=== PATIENT | female | born 1990 | race Caucasian/White ===

== ENCOUNTER 2016-09-11 15:46 | Outpatient (CLI) ==
[2016-05-31 12:12] VITALS: BMI 21.4
[2016-09-12 06:12] LABS: TESTOSTERONE 35 ng/dL (8-48)
[2016-09-12 07:16] LABS: FOLLICLE STIMULATING HORMONE 2.6 mIU/mL (.); LUTEINIZING HORMONE 5.2 mIU/mL (.); PROLACTIN 23.4 ng/mL (4.8-23.3)
[2016-09-14 09:54] LABS: FREE TESTOSTERONE 0.8 pg/mL (0.0-4.2)
== END 2016-09-11 15:47 | disposition home or self-care (01) ==
LOC: LAB 15:46
PROVIDERS: ATTEND Advanced Practice Midwife
DX: R10.2 Pelvic and perineal pain (principal)
CPT/HCPCS: 36415; 83001; 83002; 83036; 84146; 84402; 84403; 84439; 84443

== ENCOUNTER 2017-02-12 14:47 | Outpatient (CLI) ==
[2016-05-31 12:12] VITALS: BMI 21.4
--- NOTE | 2017-02-12 15:44 | DI ---
EXAM: Two views of the chest. History: Cough. Comparison: Chest radiograph 01/30/2016 Findings: Heart size is normal. No focal consolidation. No appreciable pleural fluid and no pneumo thorax. No acute osseous abnormalities. Impression: No acute cardiopulmonary process.
== END 2017-02-12 14:48 | disposition home or self-care (01) ==
LOC: RAD 14:47
PROVIDERS: ATTEND Nurse Practitioner Family
DX: J02.9 Acute pharyngitis, unspecified (principal); J40 Bronchitis, not specified as acute or chronic; R05 Cough; F17.200 Nicotine dependence, unspecified, uncomplicated
CPT/HCPCS: 87651; 87880

== ENCOUNTER 2017-04-01 16:31 | Outpatient (CLI) ==
[2016-05-31 12:12] VITALS: BMI 21.4
[2017-04-01 16:38] LABS: BASOPHILS # (AUTO) 0.1 K/uL (0-0.2); BASOPHILS % (AUTO) 1.1 % (0.0-3.0); EOSINOPHILS # (AUTO) 0.7 K/ul (0.0-0.7); EOSINOPHILS % (AUTO) 6.4 % (0.0-7.0); HEMATOCRIT 38.7 % (37.0-47.0); HEMOGLOBIN 13.2 g/dl (12.0-16.0); IMMATURE GRANULOCYTE % (AUTO) 0.5 % (0.0-5.0); LYMPHOCYTES # (AUTO) 3.5 K/uL (0.60-3.4); LYMPHOCYTES % (AUTO) 32.1 (10.0-50.0); MEAN CORPUSCULAR HEMOGLOBIN 31.6 pg (27.0-31.0); MEAN CORPUSCULAR HGB CONC 34.1 (31.8-35.4); MEAN CORPUSCULAR VOLUME 92.6 fl (81.0-99.0); MONOCYTES # (AUTO) 0.6 K/uL (0.4-2.0); NEUTROPHILS # (AUTO) 5.8 K/ul (2.0-6.9); NEUTROPHILS % (AUTO) 53.9; PLATELET COUNT 326 10^3/uL (140-440); RED BLOOD COUNT 4.18 10^6/ul (4.20-5.40); WHITE BLOOD COUNT 10.75 K/ul (4.6-10.2)
[2017-04-01 16:40] LABS: BILIRUBIN,URINE Negative (NEGATIVE); KETONES,URINE Negative (NEGATIVE); LEUKOCYTE ESTERASE ,URINE Negative (NEGATIVE); NITRITE,URINE Positive (NEGATIVE); PROTEIN,URINE Negative (NEGATIVE); URINE, BLOOD Negative (NEGATIVE)
[2017-04-01 16:43] LABS: ADD URINE MICROSCOPIC YES
[2017-04-01 16:51] LABS: ALBUMIN 3.5 g/dL (3.4-5.0); ALBUMIN/GLOBULIN RATIO 0.95; ANION GAP 10.7; BILIRUBIN,TOTAL 0.38 mg/dL (0.00-1.20); BUN/CREATININE RATIO 8.45; CALCIUM 9.5 mg/dL (8.2-10.2); CREATININE 0.71 mg/dL (0.60-1.30); POTASSIUM 3.7 mmol/L (3.5-5.10); TOTAL PROTEIN 7.2 g/dL (6.4-8.2)
[2017-04-01 16:54] LABS: BACTERIA,URINE TRACE (NOT PRESENT)
== END 2017-04-01 16:32 | disposition home or self-care (01) ==
LOC: LAB 16:31
PROVIDERS: ATTEND Nurse Practitioner Family
DX: N30.00 Acute cystitis without hematuria (principal); R81 Glycosuria; R30.0 Dysuria
CPT/HCPCS: 36415; 80053; 81001; 85025; 87086

== ENCOUNTER 2017-04-17 16:56 | Outpatient (CLI) ==
[2016-05-31 12:12] VITALS: BMI 21.4
--- NOTE | 2017-04-17 17:35 | DI ---
EXAM: Five view lumbar spine COMPARISON: None HISTORY: Back pain. FINDINGS: Oblique views show no evidence for pars defect. There is no acute compression or subluxatio n. Alignment is anatomic. The disk spaces are well preserved. There is no significant degenerative ch delia. The visualized sacroiliac joints are symmetric with no evidence for erosion. Soft tissues are unrema rkable. There are no pathologic calcifications or masses. There are 5 lumbar type vertebral bodies. IMPRESSION: Negative lumbar spine.
== END 2017-04-17 16:57 | disposition home or self-care (01) ==
LOC: RAD 16:56
PROVIDERS: ATTEND Nurse Practitioner Family
DX: M54.5 Low back pain (principal)

== ENCOUNTER 2017-05-24 12:38 | Outpatient (CLI) ==
[2016-05-31 12:12] VITALS: BMI 21.4
[2017-05-24 12:46] LABS: FLU INTERNAL QC INTERNAL QC VALID; MOLECULAR FLU A NEGATIVE (NEGATIVE); MOLECULAR FLU B NEGATIVE (NEGATIVE)
[2017-05-24 12:51] LABS: BILIRUBIN,URINE Negative (NEGATIVE); KETONES,URINE Negative (NEGATIVE); LEUKOCYTE ESTERASE ,URINE Trace (NEGATIVE); NITRITE,URINE Positive (NEGATIVE); PROTEIN,URINE 1+ (NEGATIVE); URINE, BLOOD Trace-intact (NEGATIVE)
[2017-05-24 12:53] LABS: ADD URINE MICROSCOPIC YES
[2017-05-24 13:06] LABS: BACTERIA,URINE 2+ (NOT PRESENT)
== END 2017-05-24 12:39 | disposition home or self-care (01) ==
LOC: LAB 12:38
PROVIDERS: ATTEND Nurse Practitioner Family
DX: N30.01 Acute cystitis with hematuria (principal); J02.9 Acute pharyngitis, unspecified; R68.89 Other general symptoms and signs
CPT/HCPCS: 81001; 87086; 87186; 87651; 87804; 87880

== ENCOUNTER 2017-06-22 17:29 | Emergency (ER) ==
[2017-06-22 17:37] VITALS: BP 135/75; TEMP 99.2; BMI 24.3
--- NOTE | 2017-06-22 18:16 | ED.PDOC ---
General ED Provider: Dr. KASEY BRANDON Chief Complaint: Abdominal Pain Stated Complaint: one week history of Lower abdominal pressure with Nausea, headache and frequency urination. Time Seen by Physician: 18:13 Mode of Arrival: Walk-In Information Source: Patient Exam Limitations: No limitations Primary Care Provider: PHILL REYES Nursing and Triage Documentation Reviewed and Agree: Yes Reviewed sepsis parameters & appropriate labs ordered?: No System Inflammatory Response Syndrome: Not Applicable Sepsis Protocol: For patient's 13 years and over: Temp is 96.8 and below OR 101 and greater Pulse >90 BPM Resp >20/minute Acutely Altered Mental Status Are patient's symptoms suggestive of a new infection, such as: -Pneumonia -Skin, Soft Tissue -Endocarditis -UTI -Bone, Joint Infection -Implantable Device -Acute Abdominal Infection -Wound Infection -Meningitis -Blood Stream Catheter Infection -Unknown System Inflammatory Response Syndrome: Not Applicable GI Complaint Exam - Abdominal Pain Complaint/Exam Onset: Gradual Duration: 1 week Symptoms Are: Still present Timing: Constant Initial Severity: Moderate Current Severity: Mild Location of Pain: RLQ, LUQ Character: Reports: Aching, Throbbing Aggravating: Reports: None Alleviating: Reports: None Associated Signs and Symptoms: Reports: Nausea. Denies: Diaphoresis, Fever, Cough, Chest pain, Dizziness, Back pain, Constipation, Blood in stool, Dysuria, Urinary frequency, Decreased urine output, Decreased appetite, Vaginal bleeding , Vaginal discharge, Vomiting, Diarrhea, Sore throat, Decreased activity AAA Risk Factors: Reports: None Cardiac Risk Factors: Reports: None Ectopic Risk Factors: Reports: None Ovarian Torsion Risk Factors: Reports: None Surgical Obstruction Risk Factors: Reports: None Related Surgical History: Reports: None Differential Diagnoses: Appendicitis, Bowel Obstruction, Constipation, Pancreatitis, Renal Colic, UTI, , Ectopic , Ovarian Cyst Review of Systems - Review Of Systems Constitutional: Reports: No symptoms Eyes: Reports: No symptoms Ears, Nose, Mouth, Throat: Reports: No symptoms Respiratory: Reports: No symptoms Cardiac: Reports: No symptoms GI: Reports: Abdominal pain, Nausea : Reports: Dysuria, Frequency Musculoskeletal: Reports: No symptoms Skin: Reports: No symptoms Neurological: Reports: Headache Endocrine: Reports: No symptoms Hematologic/Lymphatic: Reports: No symptoms All Other Systems: Reviewed and Negative Past Medical History - Past Medical History Previously Healthy: Yes Endocrine: Reports: None Cardiovascular: Reports: Hypertension, Other (right bundle branch block ) Respiratory: Reports: Asthma, Pneumonia (one month ago ) Hematological: Reports: None Gastrointestinal: Reports: None Genitourinary: Reports: None Neuro/Psych: Reports: Migraine, Anxiety Musculoskeletal: Reports: Other Cancer: Reports: None Last Menstrual Period: may 15 - Surgical History General Surgical History: Reports: Tonsillectomy, Adenoidectomy, Orthopedic ( RIGHT ULNAR AND RADIUS SET FROM AN INJURY 1999) - Family History Family History: Reports: Other (Female cancers.) - Social History Smoking Status: Current every day smoker, Light tobacco smoker Hx Substance Use: No Alcohol Screening: Occasionally Physical Exam - Physical Exam Appearance: Well-appearing, Well-nourished Pain Distress: Mild Eyes: GUY, EOMI, Conjunctiva clear ENT: Ears normal, Nose normal, Oropharynx normal Respiratory: Airway patent, Breath sounds clear, Breath sounds equal, Respirations nonlabored Cardiovascular: RRR, Pulses normal, No rub, No murmur GI/: Soft, No masses, Bowel sounds normal, No Organomegaly, Tender (mild tenderness to palpation, no rebound. ) Musculoskeletal: Normal strength, ROM intact, No edema, No calf tenderness Skin: Warm, Dry, Normal color Neurological: Sensation intact, Motor intact, Reflexes intact, Cranial nerves intact, Alert, Oriented Psychiatric: Affect appropriate, Mood appropriate Interpretation - Radiology Interpretation Radiology Interpretation By: Radiologist Radiology Results: Positive (Right Adnexal Cyst without free fluid.) Exam Interpreted: CT Scan (Abdomen and Pelvis. ) Critical Care Note - Critical Care Note Total Time (mins): 0 Course - Course Hematology/Chemistry: 06/22/17 17:50 06/22/17 17:50 Orders, Labs, Meds: Lab Review 06/22/17 06/22/17 06/22/17 17:41 17:41 17:50 WBC 12.53 H RBC 4.20 Hgb 13.3 Hct 38.9 MCV 92.6 MCH 31.7 H MCHC 34.2 RDW Coeff of Marly 12.6 Plt Count 290 Immature Gran % (Auto) 0.3 Neut % (Auto) 42.8 Lymph % (Auto) 36.9 Early % (Auto) 6.8 Eos % (Auto) 12.1 H Baso % (Auto) 1.1 Immature Gran # (Auto) 0.0 Neut # 5.4 Lymph # 4.6 H Early # 0.9 Eos # 1.5 H Baso # 0.1 Sodium Potassium Chloride Carbon Dioxide Anion Gap BUN Creatinine Estimated GFR (MDRD) BUN/Creatinine Ratio Glucose Calcium Total Bilirubin AST ALT Alkaline Phosphatase Total Protein Albumin Globulin Albumin/Globulin Ratio Amylase Lipase Urine Color Yellow Urine Clarity Clear Urine pH 5.5 Ur Specific [place] <=1.005 Urine Protein Negative Urine Glucose (UA) Negative Urine Ketones Negative Urine Blood Negative Urine Nitrite Negative Urine Bilirubin Negative Urine Urobilinogen 0.2 Ur Leukocyte Esterase Negative Urine Test Negative 06/22/17 17:50 WBC RBC Hgb Hct MCV MCH MCHC RDW Coeff of Marly Plt Count Immature Gran % (Auto) Neut % (Auto) Lymph % (Auto) Early % (Auto) Eos % (Auto) Baso % (Auto) Immature Gran # (Auto) Neut # Lymph # Early # Eos # Baso # Sodium 138 Potassium 3.4 L Chloride 108 H Carbon Dioxide 25 Anion Gap 8.4 BUN 9 Creatinine 0.71 Estimated GFR (MDRD) 101.00 BUN/Creatinine Ratio 12.67 Glucose 63 L Calcium 9.3 Total Bilirubin < 0.3 AST 19 ALT 28 Alkaline Phosphatase 61 Total Protein 7.2 Albumin 3.7 Globulin 3.5 Albumin/Globulin Ratio 1.06 Amylase 82 Lipase 50 Urine Color Urine Clarity Urine pH Ur Specific [place] Urine Protein Urine Glucose (UA) Urine Ketones Urine Blood Urine Nitrite Urine Bilirubin Urine Urobilinogen Ur Leukocyte Esterase Urine Test Orders Category Date Time Status AMYLASE Stat LAB 06/22/17 17:50 Completed CBC W/ AUTO DIFF Stat LAB 06/22/17 17:50 Completed COMPREHENSIVE METABOLIC PANEL Stat LAB 06/22/17 17:50 Completed LIPASE Stat LAB 06/22/17 17:50 Completed URINALYSIS C & S IF INDICATED Stat LAB 06/22/17 17:41 Completed URINE Stat LAB 06/22/17 17:41 Completed Ketorolac Tromethamine [Toradol] MEDS 06/22/17 19:11 Discontinued 60 mg IM ONCE STA CT ABD/PEL WO RENAL STONE PROT Stat RADS 06/22/17 18:01 Completed Medications Discontinued Medications Generic Name Dose Route Start Last Admin Trade Name Freq PRN Reason Stop Dose Admin Ketorolac Tromethamine 60 mg 06/22/17 19:11 06/22/17 19:18 Toradol IM 06/22/17 19:12 60 mg ONCE STA Administration Vital Signs: Temp Pulse Resp BP Pulse Ox 06/22/17 17:29 99.2 F 70 16 135/75 99 Departure - Departure Time of Disposition: 19:31 Disposition: HOME SELF-CARE Discharge Problem: Ovarian cyst Qualifiers: Laterality: right Qualified Code(s): N83.201 - Unspecified ovarian cyst, right side Instructions: Ovarian Cyst (ED) Condition: Fair Pt referred to PMD for follow-up: Yes IPMP verified?: Yes Additional Instructions: Take medication as prescribed Follow up with PCP in 3 days Prescriptions: Ketorolac Tromethamine [Toradol] 10 mg PO Q6H #25 tablet Tramadol HCl [Ultram] 50 mg PO Q6H PRN #25 tablet PRN Reason: Severe Pain Allergies/Adverse Reactions: Allergies Sulfa (Sulfonamide Antibiotics) Adverse Reaction (Verified 06/22/17 17:37) RASH/HIVES Home Medications: Ambulatory Orders Acetaminophen 325 mg PO DIRECTED PRN 02/20/17 Ibuprofen 200 mg PO DIRECTED PRN 05/24/17 [id number]/Iron Fum/Folic/Docusate [ 19 Tablet] 1 each PO DAILY tab-cap Ketorolac Tromethamine [Toradol] 10 mg PO Q6H #25 tablet 06/22/17 Tramadol HCl [Ultram] 50 mg PO Q6H PRN #25 tablet 06/22/17 Disposition Discussed With: Patient, Family
--- NOTE | 2017-06-22 18:55 | CT ---
EXAM: CT scan abdomen pelvis without contrast HISTORY: Lower abdominal pain COMPARISON: CT scan abdomen pelvis 04/17/2015 FINDINGS: Contiguous axial images obtained through the abdomen pelvis without contrast utilizing 3-m m collimation. Sagittal and coronal reconstructions were imaged and reviewed.. The visualized lung bases are clear. The gallbladder is contracted. The liver, pancreas, spleen and adrenal glands have normal kidneys morphologically normal.. There are scattered subcentimeter mesenteric lymph nodes. There is no CT evidence of appendicitis. There is a 3.5 x 3.0 cm right adnexal cyst. There is no fr ee fluid.. Bone windows reveals no evidence of lytic or blastic lesions. IMPRESSION: No acute intra-abdominal findings. Right adnexal cyst without free fluid
[2017-06-22] MEDS ORDERED: TORADOL IM STA (19:11)
== END 2017-06-22 19:47 | disposition home or self-care (01) ==
LOC: ED 17:29
DX: N83.201 Unspecified ovarian cyst, right side (principal); F17.210 Nicotine dependence, cigarettes, uncomplicated
CPT/HCPCS: 36415; 74176; 80053; 81001; 81025; 82150; 83690; 85025; 96372; 99283

== ENCOUNTER 2018-03-17 17:38 | Outpatient (CLI) | payer OTHER | END 2018-03-17 17:39 | LOC: LAB 17:38 | PROVIDERS: ATTEND Advanced Practice Midwife | DX: O13.9 Gestational [pregnancy-induced] hypertension without significant proteinuria, unspecified trimester (principal) | CPT/HCPCS: 36415; 81050; 82575; 84155; 84156 ==

== ENCOUNTER 2018-11-04 12:06 | Outpatient (CLI) | END 2018-11-04 12:07 | disposition home or self-care (01) | LOC: RHC-LAB 12:06 | PROVIDERS: ATTEND Nurse Practitioner Family | DX: R52 Pain, unspecified (principal); J02.9 Acute pharyngitis, unspecified | CPT/HCPCS: 87502; 87651 ==

== ENCOUNTER 2018-11-10 12:01 | Outpatient (CLI) ==
--- NOTE | 2018-11-10 13:39 | DI ---
EXAM: Two views of the chest. History: Acute bronchitis. Comparison: Chest radiograph 02/12/2017 Findings: Heart size is normal. There is central bronchial wall thickening. No consolidation. No pleural fluid and no pneumothorax. No acute osseous abnormalities. Impression: Central bronchial wall thickening with no consolidated pneumonia
== END 2018-11-10 12:02 | disposition home or self-care (01) ==
LOC: RAD 12:01
PROVIDERS: ATTEND Family Medicine
DX: J20.9 Acute bronchitis, unspecified (principal)

== ENCOUNTER 2018-11-20 10:58 | Outpatient (CLI) | END 2018-11-20 10:59 | disposition home or self-care (01) | LOC: RHC-LAB 10:58 → FCC-LAB 10:59 | PROVIDERS: ATTEND Family Medicine | DX: Z00.00 Encounter for general adult medical examination without abnormal findings (principal) | CPT/HCPCS: 36415; 80053; 80061; 84443; 85025 ==